=== PATIENT | male | born 1940 | race Caucasian/White ===

== ENCOUNTER 2016-08-31 13:57 | Observation (INO) | payer MEDICARE ==
[~2016-08-31] VITALS: Ht 185.4 cm; Wt 125.0 kg
--- NOTE | ~2016-08-31 | CO ---
ADMIT: 08/31/2016 RM/LOC: 628 [facility] MR#: [id number] 2620 [facility] [address] [place], [place] [address] YANIRA BUCK [address] [place] [address] Consultation SEX: M AGE: 76 : 1940 DATE OF CONSULTATION: 09/01/2016 ATTENDING PHYSICIAN: Shailesh Carmona CONSULTING PHYSICIAN: Jose Fan MD ADDENDUM: You can see full dictated consult by Alejandro Seay, my PA. Yanira is a 76-year-old gentleman admitted yesterday for abdominal pain. We were asked to see him because of an umbilical hernia and actually this is kind of a supraumbilical hernia and recurrent, he had it fixed many years ago and he said probably over the last 3 or 4 years, he has noticed a little bit of recurrence. It is easily reducible, not a lot of pain there, discomfort and discoloration of the skin. He is actually tender a little higher than that in the abdomen, but no diffuse peritoneal signs. He has some positive bowel sounds. He actually was traveling, he just got back from the [employer] Flight that they took to [place], [place], and this has been going on since Wednesday. Nobody else otherwise sick that he knows of from that standpoint. At this, he does have loose stools. He said that is normal for him, does not seem different or worse. He does not have blood there. ASSESSMENT: At this point, there is no urgency or emergency about his umbilical hernia. I think, we can just keep an eye on that. I can see him as an outpatient. We can visit about fixing that if it is giving him any fits. I think this is a little bit more of a viral gastroenteritis than anything else currently and I would let him eat, drink, and see how he does, increase activity and we will go from there. Labs otherwise look okay. I reviewed everything else within his chart, we will see how he does. Jose Fan MD/ pietro JOB #: [id number] CC: Shailesh Carmona, Attending Physician Shailesh Carmona, Family Physician
[2016-09-02] MEDS ORDERED: PRILOSEC DPS20 MG PO (18:48)
[2016-09-02] MEDS ORDERED: HYTRIN5 MG PO (18:48)
[2016-09-02] MEDS ORDERED: NORVASC DPS10 MG PO (18:48)
[2016-09-02] MEDS ORDERED: COREG DPS6.25 MG PO (18:48)
[2016-09-02] MEDS ORDERED: ASPIRIN EC81 MG PO (18:49)
[2016-09-02] MEDS ORDERED: LASIX DPS40 MG PO (18:49)
[2016-09-02] MEDS ORDERED: KLOR-CON M2020 ME1 PO (18:49)
[2016-09-02] MEDS ORDERED: MOBIC15 MG PO (18:49)
[2016-09-02] MEDS ORDERED: CELEXA DPS20 MG PO (18:49)
--- NOTE | 2016-09-05 08:46 | ER ---
ADMIT: 08/31/2016 RM/LOC: 628 [facility] MR#: [id number] [address] [address] YANIRA BUCK [address] [place] [id number] Emergency Room Report SEX: M AGE: 76 : 1940 DATE: 08/31/2016 HISTORY OF PRESENT ILLNESS: A 76-year-old male who comes to the Emergency Department with 3 or 4 days worth of abdominal pain, getting worse. He stated that he is not able to eat today because of the severe pain. It is worsened with activity, worsened with car ride in here. When he laughs, he says the pain is terrible. PAST MEDICAL HISTORY: Significant for hypertension. PHYSICAL EXAMINATION: GENERAL: Reveals an obese gentleman, in no acute distress. LUNGS: Clear to auscultation. CARDIOVASCULAR: Regular rate and rhythm. ABDOMEN: Hyperactive bowel tones. It was tympanic and distended with rebound tenderness. LABORATORY DATA: CBC was within normal limits. Chemistries normal, glucose 117. CT showed no acute findings. DISPOSITION: The patient was admitted under observation status for abdominal pain. Cheng Curry MD/ pietro JOB #: [id number] CC: Shailesh Carmona MD, Attending Physician Shailesh Carmona MD, Family Physician
--- NOTE | 2016-09-23 15:54 | CO ---
ADMIT: 08/31/2016 RM/LOC: 628 [facility] MR#: [id number] 2620 [facility] [address] [place], [place] [address] YANIRA BUCK [address] [place] [address] Consultation SEX: M AGE: 76 : 1940 DATE OF CONSULTATION: 09/01/2016 ATTENDING PHYSICIAN: Shailesh Carmona CONSULTING PHYSICIAN: Jose Fan MD REASON FOR CONSULTATION: Abdominal pain. HISTORY OF PRESENT ILLNESS: Yanira is a very pleasant 76-year-old male, who developed sudden onset of abdominal pain on Wednesday evening, so approximately 4 days ago. Since then, his symptoms have not improved. His pain is supraumbilical and has been noted to be colicky in nature. He does have loose stools but he states that this is a regular for him. He denies any nausea, vomiting, dark or bloody stools. He has had some night sweats but this has been consistent for him for the last several months. He denies any fever or chills. The patient does have a known periumbilical hernia. Originally, he notices back in 2007 and had it fixed by a surgeon in [place] to which he does not remember his name. At that time, he does not believe he had mesh placed. Since then, he has noticed his hernia has recurred over the last several years. Occasionally, in the past, it has given him some mild discomfort. PAST MEDICAL HISTORY: Significant for; 1. GERD. 2. Hypertension. 3. Arthritis. 4. Osteoarthritis. PAST SURGICAL HISTORY: 1. Periumbilical hernia repair approximately 9 years ago. 2. Bilateral knee and shoulder surgery. 3. Back surgery. 4. Tonsils as a kid. ALLERGIES: 1. NEOSPORIN. 2. VANCOMYCIN. 3. CODEINE. 4. MORPHINE. MEDICATIONS: Well documented in chart. FAMILY HISTORY: Noncontributory. SOCIAL HISTORY: Patient drinks approximately six pack a week, but denies any tobacco or illicit drug use. REVIEW OF SYSTEMS: CONSTITUTIONAL: The patient has noticed some night sweats ADMIT: 08/31/2016 RM/LOC: 628 [facility] MR#: [id number] [address] [address] YANIRA BUCK [address] [place] [address] Consultation SEX: M AGE: 76 : 1940 for the last several months, but denies any chills or fevers. The rest of a comprehensive 10-point review of systems was performed and all other systems are negative. PHYSICAL EXAMINATION: GENERAL: The patient is in no acute distress. He is alert and oriented. HEENT: Head is normocephalic and atraumatic. EOMS are intact. Conjunctivae free of icterus, erythema, or pallor. Pinnae, free of deformities. Nose, midline. No tracheal deviation. NECK: Supple. SKIN: Negative for jaundice, clubbing, edema, pallor, or cyanosis. LUNGS: Normal respiratory effort. HEART: Distal pulses intact. Regular rate and rhythm. ABDOMEN: Soft and nondistended . Tenderness in supraumbilical region. Periumbilical hernia palpated. Appears to have some subcutaneous fat trapped in it. No bowel incarcerated within the hernia upon exam. NEURO: Grossly intact. DIAGNOSTIC IMAGING: CT of abdomen and pelvis revealed small periumbilical hernia with some possible fat in it, but no bowel. Also to note, there was some small bowel wall thickening consistent with possible enteritis. A nonenhancing 3 cm right lobe lesion of the liver, probable cyst, and multiple bilateral renal cysts with no obstructive changes. ASSESSMENT: 1. Periumbilical hernia. 2. Enteritis. PLAN: Given the CT and physical exam findings, I do not believe his pain is caused from the periumbilical hernia but possibly due to enteritis. I do believe however that if this hernia continues to bother him, he should seek outpatient evaluation by Dr. Fan who is on-call today at our clinic. The patient and his who are present during my assessment are in agreement of this plan, had all their questions answered and would like to proceed. I will have Dr. Fan review the patient as well later today, and we will base medical treatment of these findings. Thanks for the consultation of this patient. GAVIN Parsons / Jose Fan MD / pietro JOB #: [id number] CC: Shailesh Carmona, Attending Physician Shailesh Carmona, Family Physician
== END 2016-09-01 19:05 | disposition home or self-care (01) ==
LOC: ER 13:57 → 6PED 15:27
DX: R10.9 Unspecified abdominal pain (principal); K21.9 Gastro-esophageal reflux disease without esophagitis; I10 Essential (primary) hypertension; M19.90 Unspecified osteoarthritis, unspecified site; Z98.890 Other specified postprocedural states; Z88.8 Allergy status to other drugs, medicaments and biological substances; Z88.6 Allergy status to analgesic agent; Z88.1 Allergy status to other antibiotic agents; Z79.82 Long term (current) use of aspirin; Z79.899 Other long term (current) drug therapy